=== PATIENT | male | born 1995 | race Caucasian/White ===

== ENCOUNTER 2016-08-02 22:03 | Emergency (ER) | payer BC, OTHER ==
[~2016-08-02 22:03] MED LIST: Acetaminophen/HYDROcodone 325-5 MG Tab PO ONE; Cyclobenzaprine 10 MG Tab PO ONE
[2016-08-02 22:32] VITALS: BP 143/96
[2016-08-02] MEDS ORDERED: Diphtheria,Pertussis(Acell),Tetanus Vaccine 0.5 ML Syringe IM ONE (22:32)
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
[2016-08-02] MEDS ORDERED: Take Home: Acetaminophen/HYDROcodone 325-5 MG, 2 Tab Pack PO ONE (23:34)
[2016-08-02] MEDS ORDERED: Take Home: Cyclobenzaprine 10 MG Tab, 4 Tab Pack PO ONE (23:34)
== END 2016-08-03 00:05 | disposition home or self-care (01) ==
LOC: CC.ED 22:03
DX: S29.011A Strain of muscle and tendon of front wall of thorax, initial encounter (principal); S80.01XA Contusion of right knee, initial encounter; S40.212A Abrasion of left shoulder, initial encounter; S30.810A Abrasion of lower back and pelvis, initial encounter; Z23 Encounter for immunization; V87.7XXA Person injured in collision between other specified motor vehicles (traffic), initial encounter
CPT/HCPCS: 71020; 73562-RT; 90471; 90715; 99284; A9270-GY